=== PATIENT | male | born 1985 | race Caucasian/White ===

== ENCOUNTER → 2016-03-13 | Outpatient (CLI) | payer BC ==
[~2016-03-13] MED LIST: MESA800T6 PO
--- NOTE | 2016-03-13 12:20 | DIAGNOSTIC IMAGING REPORT ---
CERVICAL SPINE 5 VIEWS HISTORY: Pain CHRONIC NECK PAIN COMPARISON: None. FINDINGS: The cervical spine is visualized from C1 through the superior endplate of T1. There is no fracture. No subluxation. Disc spaces are preserved. Prevertebral soft tissues and the atlantodens interval are intact. IMPRESSION: No fracture or subluxation within the cervical spine. Electronically signed by: Dell Almonte M.D. 03/13/2016 12:19 PM Dictated Date/Time: 03/13/2016 12:18 PM
== END | disposition home or self-care (01) ==
LOC: C.RDSM 11:35
PROVIDERS: ATTEND Internal Medicine
DX: S29.019A Strain of muscle and tendon of unspecified wall of thorax, initial encounter (principal); X58.XXXA Exposure to other specified factors, initial encounter

== ENCOUNTER → 2017-03-15 | Outpatient (CLI) | payer OTHER ==
[~2017-03-15] MED LIST changes: +MESA1TAB4 PO; -MESA800T6 PO
--- NOTE | 2017-03-15 13:54 | DIAGNOSTIC IMAGING REPORT ---
L UPPER EXT JOINT WITHOUT CLINICAL HISTORY: 31 years-old Male with TEAR OF TRIANGULAR CARTLIDGE OF LEFT WRIST. Acute left wrist pain COMPARISON: None. TECHNIQUE: Multiplanar, multi sequence MRI of the left wrist was performed without intravenous contrast. FINDINGS: EXTRINSIC LIGAMENTS: The volar extrinsic ligaments including the nuice-hwslem-bskysjgf and dunlj-tqlh-zwgqilsqly ligaments are grossly intact. INTRINSIC LIGAMENTS: The scapholunate and lunotriquetral ligaments are intact and unremarkable in appearance. No evidence of scapholunate or lunotriquetral interval widening. TFCC: The triangulofibrocartilage complex is preserved including the articular disc, the meniscal homologue, the extensor carpi ulnaris tendon, the volar and dorsal distal radioulnar ligaments and the ulnolunate and ulnotriquetral ligaments. There is minimal intrasubstance signal of the articular disc suggesting some degeneration without discrete tear. BONE MARROW: Bone marrow signal is normal. No fracture, edema, or focal marrow replacement process. 2 mm subcortical cyst seen involving the volar aspect of the lunate. JOINT SPACES: Joint spaces are maintained. No focal articular cartilage loss or osteochondral lesion. CARPAL TUNNEL: The contents of the carpal tunnel are unremarkable in appearance without evidence of carpal tunnel syndrome. The flexor tendons and median nerve are unremarkable in appearance. The flexor retinaculum is unremarkable. The ulnar nerve appears unremarkable. EXTENSOR TENDONS: The extensor tendons are unremarkable, without tenosynovitis, tear or degeneration. No evidence of dislocation or subluxation of the extensor tendons. Minimal tendinosis of the extensor carpi ulnaris. SOFT TISSUES: The soft tissues about the wrist appear normal. IMPRESSION: 1. Minimal degeneration of the TFCC articular disc without discrete tear identified. 2. Minimal tendinosis of the extensor carpi ulnaris tendon. 3. No acute fracture, significant degenerative changes or focal bone marrow edema. The above report was generated using voice recognition software. It may contain grammatical, syntax or spelling errors. Electronically signed by: Clint Lay M.D. 03/15/2017 1:53 PM Dictated Date/Time: 03/15/2017 1:42 PM
== END | disposition home or self-care (01) ==
LOC: C.MRI 12:43
PROVIDERS: ATTEND Family Medicine
DX: S63.592A Other specified sprain of left wrist, initial encounter (principal); X58.XXXA Exposure to other specified factors, initial encounter